=== PATIENT | female | born 1950 | race Caucasian/White ===

== ENCOUNTER 2018-09-12 08:09 | Day surgery (SDC) | payer MEDICARE, OTHER ==
[~2018-09-12] VITALS: Ht 160 cm; Wt 81.2 kg
[~2018-09-12 08:09] MED LIST: AMPDEX10; AMPDEX10CR; HCTZ; KLOR; LIPITOR; POTCHL20ER PO
[2018-09-12] MEDS ORDERED: Pravachol80 MG PO (08:56)
[2018-09-12] MEDS ORDERED: THYR60 PO (08:57)
[2018-09-12] MEDS ORDERED: PRAM.5 PO (08:58)
[2018-09-12] MEDS ORDERED: TRULICITY0.75 MG/0. IM (08:59)
--- NOTE | 2018-09-12 09:19 | NUR ---
09/12/18 0919 Esmer Jaimes V PT RESTING IN BED, SIDE RAILS IN LACE, CALL LIGHT WITHIN REACH, VSS. PT'S AT BEDSIDE.
== END 2018-09-12 10:16 | disposition home or self-care (01) ==
LOC: ORSCSDS 08:09
PROVIDERS: Surgery
PROC: 0DJD8ZZ Inspection of Lower Intestinal Tract, Via Natural or Artificial Opening Endoscopic (ICD-10-PCS; principal; 2018-09-12 09:30)
DX: Z12.11 Encounter for screening for malignant neoplasm of colon (principal); Z86.010 Personal history of colon polyps; D12.0 Benign neoplasm of cecum; E03.9 Hypothyroidism, unspecified; E78.5 Hyperlipidemia, unspecified; F32.9 Major depressive disorder, single episode, unspecified; F41.8 Other specified anxiety disorders; E11.9 Type 2 diabetes mellitus without complications; Z79.899 Other long term (current) drug therapy
CPT/HCPCS: 82947; 88305; J0330; J1980; J2001; J2405; J7120

== ENCOUNTER 2024-06-14 13:59 | Day surgery (SDC) | payer MEDICARE, OTHER ==
[~2024-06-14] VITALS: Ht 160 cm; Wt 73.9 kg
[~2024-06-14 13:59] MED LIST changes: +Budeprion Xl300 MG; +FLONASE ALLERG9.9 M2; +HYDCHL12.5 PO; +LORA.5 PO; +Lactated Ringer's 1,000 ML IV ONE; +Lidocaine HCl/Pf 1% 5 ML VIAL ONE; +MIRAPEX0.75 M1 PO; +PRAM.5 PO; +Pravachol80 MG PO; +THYR60 PO; +TRAZ50 PO; +TRULICITY0.75 MG/0. IM
[2024-06-14] MEDS ORDERED: Lactated Ringer's 1,000 ML IV ONE (15:21)
[2024-06-14] MEDS ORDERED: propofoL 50 ML IV ONE (15:43)
[2024-06-14 17:04] VITALS: BP 110/63
== END 2024-06-14 16:58 | disposition home or self-care (01) ==
LOC: ORSCSDS 13:59
PROVIDERS: Surgery
PROC: 0DJD8ZZ Inspection of Lower Intestinal Tract, Via Natural or Artificial Opening Endoscopic (ICD-10-PCS; principal; 2024-06-14 15:30)
DX: Z12.11 Encounter for screening for malignant neoplasm of colon (principal); Z86.0101 Personal history of adenomatous and serrated colon polyps; K57.30 Diverticulosis of large intestine without perforation or abscess without bleeding; E78.5 Hyperlipidemia, unspecified; F32.A Depression, unspecified; I47.10 Supraventricular tachycardia, unspecified; Z79.899 Other long term (current) drug therapy
CPT/HCPCS: 82947; J2003; J2704; J7120